=== PATIENT | male | born 1950 | race Caucasian/White ===

== ENCOUNTER → 2017-02-13 | Outpatient (CLI) | payer MEDICARE ==
[~2017-02-13] MED LIST: CPR500T PO; DIAZ-345 PO; IBUP-15 PO; SILO8CAP PO
--- NOTE | 2017-02-13 09:53 | Diagnostic Imaging Report ---
PROCEDURE: CT chest without contrast. TECHNIQUE: Multiple contiguous axial images were obtained through the chest without the use of intravenous contrast. INDICATION: Smoker for 35 years. FINDINGS: There is mild obstructive interstitial lung disease present. There is a 7 mm pleural-based soft tissue nodule in the posterior aspect of the right upper lung on image 7 of series 3. No other nodules are seen. The aortic root measures 5 cm. The descending thoracic aorta measures 3 cm. There are few scattered mediastinal lymph nodes. Pretracheal lymph node measures 13 x 10 mm. Lymph node in the AP window measures 11 x 8 mm. There is no pleural effusion or pericardial effusion. The adrenal glands are not enlarged. Bone windows show no evidence of blastic or lytic lesions. IMPRESSION: 1. 7 mm soft tissue nodule pleural-based superiorly in the posterior right lung as described. Would recommend short-term followup for stability. 2. Nonspecific mediastinal and hilar lymph nodes as described. 3. Obstructive interstitial lung disease. Dictated by: Dictated on workstation # [id number]
== END ==
LOC: RAD 08:32
PROVIDERS: ATTEND Nurse Practitioner Family
DX: R91.1 Solitary pulmonary nodule (principal); R59.0 Localized enlarged lymph nodes; J44.9 Chronic obstructive pulmonary disease, unspecified; F17.210 Nicotine dependence, cigarettes, uncomplicated
CPT/HCPCS: 71250

== ENCOUNTER → 2017-09-04 | Outpatient (CLI) | payer MEDICARE ==
--- NOTE | 2017-09-04 08:51 | Diagnostic Imaging Report ---
PROCEDURE: CT chest without contrast. TECHNIQUE: Multiple contiguous axial images were obtained through the chest without the use of intravenous contrast. INDICATION: Followup pulmonary nodule. COMPARISON: 02/13/2017 FINDINGS: Cardiomediastinal structures show normal heart size. There is no large pericardial effusion. Borderline prominent precarinal lymph node is again identified and measures 1 x 1.3 cm. This is stable compared to prior exam. There is also persistent aneurysmal dilatation of ascending aorta as it measures 4.6 cm on today's exam. Evaluation of lung herron demonstrates no focal consolidation, pleural effusion, no pneumothorax. There is mild air trapping consistent with background of obstructive pulmonary disease. There is a very subtle 6 mm juxtapleural micronodular density within the posterior margins of the right apex (image 10, series 2). This is stable compared to prior exam. No new pulmonary nodules or masses are identified. Bony structures show age-related degenerative changes of the thoracic spine. No acute osseous abnormalities are seen. Included portions of the upper abdomen are unremarkable. IMPRESSION: 1. Stable juxtapleural micronodular density within the posterior margins of the right apex. Six-month followup is recommended to ensure ongoing stability. 2. No new acute cardiopulmonary process. 3. Persistent aneurysmal dilatation of the ascending aorta. 4. Stable borderline precarinal lymph node. 5. Scattered air trapping suggestive of background of obstructive pulmonary disease. Dictated by: Dictated on workstation # [id number]
== END ==
LOC: RAD 07:38
PROVIDERS: ATTEND Nurse Practitioner Family
DX: I71.2 Thoracic aortic aneurysm, without rupture (principal); J84.9 Interstitial pulmonary disease, unspecified; R91.1 Solitary pulmonary nodule
CPT/HCPCS: 71250

== ENCOUNTER → 2018-07-24 | Outpatient (CLI) | payer MEDICARE ==
--- NOTE | 2018-07-24 11:40 | Diagnostic Imaging Report ---
PROCEDURE: CT chest without contrast. TECHNIQUE: Multiple contiguous axial images were obtained through the chest without the use of intravenous contrast. INDICATION: Followup lung nodules. COMPARISON: Comparison is made with CT chest from 09/04/2017. FINDINGS: No axillary lymphadenopathy is seen. Previously noted precarinal lymph node measures 13 mm x 11 mm, stable. Ascending thoracic aorta remains aneurysmal, measuring approximately 4.9 cm AP compared with 4.6 cm on prior. The aortic arch and descending thoracic aorta appear to be normal in caliber. No pericardial or pleural fluid is identified. Parenchymal evaluation again shows subtle juxtapleural density in the right apex posteriorly, image 8 series 2, approximately 5 mm in size, stable. No new pulmonary mass is seen. There is some scarring in the lower lobes bilaterally. Upper abdomen is unremarkable. Bony structures are unremarkable. IMPRESSION: Stable noncontrast chest CT when compared with exam from 09/04/2017. Tiny right apical juxtapleural nodule now shows one year of stability. Dictated by: Dictated on workstation # [id number]
== END ==
LOC: RAD 11:04
PROVIDERS: ATTEND Nurse Practitioner Family
DX: R91.8 Other nonspecific abnormal finding of lung field (principal)
CPT/HCPCS: 71250

== ENCOUNTER → 2020-01-23 | Outpatient (CLI) | payer MEDICARE ==
--- NOTE | 2020-01-23 08:58 | Diagnostic Imaging Report ---
CT CHEST WO TECHNIQUE: Multiple contiguous axial images were obtained through the chest without the use of intravenous contrast. All CT scans use one or more of the following dose optimizing techniques: automated exposure control, MA and/or KvP adjustment based on a patient size and exam type, or iterative reconstruction. INDICATION: Pulmonary nodule follow-up COMPARISON: CT chest from 07/24/2018 and 02/13/2017 FINDINGS: Lungs and airway: No endoluminal nodule within the trachea. Mild to moderate centrilobular emphysema is present. No pulmonary mass or consolidation has developed. Stable subpleural triangular focus of atelectasis/scar in the right apex (image 20, series 3). No new pulmonary nodules have developed that would be suspicious for clinically active lung cancer. Pleura: No pleural effusion or pneumothorax. Heart and mediastinum: Thyroid is normal where seen. No supraclavicular or axillary lymphadenopathy. No mediastinal, discrete hilar or juxtaphrenic lymphadenopathy. Heart is normal in size without pericardial effusion. Mild fusiform aneurysmal dilatation of the ascending aorta with the mid aspect measuring approximately 4.5 cm, is unchanged. Upper abdomen: No acute abnormality in the upper abdomen. Musculoskeletal: No worrisome focal osseous lesion. Stable mild degenerative disc disease throughout the thoracic spine. IMPRESSION: 1. There are no pulmonary nodules that would suggest clinically active lung cancer. 2. The nodular focus of scar in the posterior superior aspect of the right upper lobe is stable for 3 years and benign in etiology requiring no dedicated follow-up imaging. 3. If the patient meets criteria, then consider enrolling in annual low-dose CT chest/lung cancer screening program. 4. Unchanged aneurysmal dilatation of the ascending aorta. Dictated by: Dictated on workstation # [id number]
== END ==
LOC: RAD 07:32
PROVIDERS: ATTEND Nurse Practitioner Family
DX: I71.2 Thoracic aortic aneurysm, without rupture (principal); J44.9 Chronic obstructive pulmonary disease, unspecified; R91.1 Solitary pulmonary nodule
CPT/HCPCS: 71250